=== PATIENT | female | born 1970 | race Caucasian/White ===

== ENCOUNTER 2016-09-30 10:20 | Day surgery (SDC) | payer MEDICARE, OTHER ==
[~2016-09-30] VITALS: Ht 172.7 cm; Wt 157.2 kg
[~2016-09-30 10:20] MED LIST: ACTOS30 MG PO; ACTOS45 MG PO; ADVAIR 250/28 DISKU1 IH; AMARYL4 MG PO; AMBIEN 5MG TABLE5 MG PO; AMBIEN CR12.5 MG PO; AMBIEN CR6.25 MG PO; AMBIEN12.5 MG PO; AMBIEN5 MG PO; AMITRIPTYLINE25 MG PO; ANTI HISTAMINE; ANTIVERT 25MG25 MG PO; ATARAX 25MG25 MG/TAB PO; ATIVAN 0.50.5 MG/TAB PO; ATIVAN PO; AZITHROMYCIN250 MG PO; CARISOPRODOL350 MG PO; CATAPRES 0.1MG0.1 MG PO; CATAPRES0.2 MG PO; CETIRIZINE; CIPRO 500MG TA500 MG PO; COENZYME Q-10100 M1 PO; COLACE 100100 MG/CAP PO; COLCHICINE0.6 MG PO; CORTISPORIN EAR10 M1 OT; CULTURELLE10 Billion PO; CYMBALTA 60MG60 MG PO; DARVOCET N; DIAZEPAM PO; DIFLUCAN200 MG PO; DILAUDID 2MG TAB2 MG PO; DILAUDID4 MG PO; DOXYCYCLINE 10100 MG PO; DOXYCYCLINE 50M50 MG PO; ELMIRON100 MG PO; ERYTHROMYCIN5 MG/G2 OP; FENOFIBRIC ACID PO; FLAX SEED OIL1000 MG PO; FLONASE NASAL S16 GM NS; GABAPENTIN600 MG PO; HUMALOG100 U/ML SC; HUMULIN R 10100 U/ML SQ; HUMULIN R U-500 U/ML SC; HUMULIN R U-500 U/ML SQ; HYDROMORPHONE HC2 MG PO; HYDROXYZINE10 M1 PO; IMITREX100 MG PO; INDERAL 20MG20 MG PO; KLONOPIN 1MG1 MG PO; LAMICTAL CD25 MG PO; LANTUS100 U/ML SC; LEVOTHYROXIN0.075 MG PO; LEVOXYL0.075 MG PO; LIPITOR20 MG PO; LITHIUM 30300 MG/CAP PO; LORATADINE10 MG PO; LYRICA 75MG CAP75 MG PO; LYRICA150 MG PO; MECLIZINE25 MG PO; MEPRON SUSPENSION PO; MUCINEX1200 MG PO; NEPHRO-VITE1 TA1 PO; NORTRIPTYLINE75 MG PO; OMEPRAZOLE40 MG PO; PHENERGAN 25 TA25 MG PO; PRELIEF333 M1 PO; PRIL40; PRIL40 PO; PRILOSEC PO; PYRIDIUM200 M1 PO; REGLAN 10MG10 MG/TAB PO; RELPAX40 MG PO; REQUIP 1MG T1 MG/TAB PO; REQUIP1 MG PO; RESTASIS0.05% OP; RESTORIL PO; SAVELLA100 MG PO; SAVELLA50 MG PO; SEROQUEL200 MG PO; SINGULAIR 110 MG/TAB PO; SLOW-MAG 106 MG1 ECT PO; SOMA350 MG PO; SUDAFED30 MG PO; TEMAZEPAM15 MG PO; TRILIPIX 135MG PO; VICTOZA SQ; VITAMIN D31 LIQ PO; VITAMIN D31 MILLION PO; XYAL5 MG PO; ZANTAC 150150 MG PO; ZANTAC 150MG T150 MG PO; ZITHROMAX 250M250 MG PO; ZOFRAN 4MG T4 MG/TAB PO; ZOFRAN ODT4 MG PO; ZOFRAN4 M1 PO; ZYRTEC 10MG10 MG PO; ZYRTEC5 MG PO; [UNRECOGNIZED DRUG - MIXTURE] TP; [UNRECOGNIZED DRUG - OTHER] PO; [UNRECOGNIZED DRUG - OTHER] TP; victoza IJ
[2016-09-30 11:37] VITALS: BP 181/103; PULSE 88; TEMP 98.2
[2016-09-30] MEDS ORDERED: AMBIEN 10MG10 MG PO (11:55)
[2016-09-30] MEDS ORDERED: PHENERGAN 25 TA25 MG PO (12:10)
[2016-09-30] MEDS ORDERED: PYRIDIUM200 M1 PO (12:10)
[2016-09-30] MEDS ORDERED: DIFLUCAN200 MG PO (12:26)
[2016-09-30 12:30] VITALS: BP 155/95; PULSE 81; TEMP 98.5
[2016-09-30 12:45] VITALS: BP 156/90; PULSE 82
[2016-09-30 13:00] VITALS: BP 157/76; PULSE 79
[2016-09-30 13:15] VITALS: BP 152/85; PULSE 80
== END 2016-09-30 13:30 | disposition home or self-care (01) ==
LOC: SDCO 10:20
DX: D12.3 Benign neoplasm of transverse colon (principal); K63.5 Polyp of colon; K62.1 Rectal polyp; E07.9 Disorder of thyroid, unspecified; K21.9 Gastro-esophageal reflux disease without esophagitis; F41.9 Anxiety disorder, unspecified; F32.9 Major depressive disorder, single episode, unspecified; E11.43 Type 2 diabetes mellitus with diabetic autonomic (poly)neuropathy; K31.84 Gastroparesis; Z86.010 Personal history of colon polyps; Z79.4 Long term (current) use of insulin; Z79.899 Other long term (current) drug therapy
CPT/HCPCS: J1815; J2250; J2704; J7030

== ENCOUNTER 2016-10-05 12:52 | Observation (INO) | payer MEDICARE, OTHER ==
[~2016-10-05] VITALS: Ht 172.7 cm; Wt 157.0 kg
[2016-10-05] VITALS (443 sets, daily range): BP systolic 147–154; BP diastolic 81–97; PULSE 77–95; TEMP 97–98.2; O2SAT 93–98
[~2016-10-05 12:52] MED LIST changes: +AMBIEN 10MG10 MG PO
[2016-10-05 13:44] LABS: BASO # 0.1 (0.0-0.2); BASO % 0.9 % (0.0-2.0); EOS # 0.3 (0.0-0.7); EOS % 3.3 % (0-4.0); GRAN % 62.6 % (42.2-75.2); HEMATOCRIT 43.1 % (37.0-47.0); HEMOGLOBIN 14.1 g/dl (12.5-16.0); LYMPH # 2.4 (1.2-3.4); LYMPH % 25.4 % (20.0-51.0); MEAN CELL VOLUME 83 fl (80.0-100.0); MEAN CORPUSCULAR HEMOGLOBIN 27 pg (27.0-31.0); MEAN CORPUSCULAR HGB CONC 33 g/dl (33.0-37.0); MEAN PLATELET VOLUME 11.5 fl (7.4-10.4); MONO # 0.7 (0.1-0.6); MONO % 7.1 % (1.7-9.3); PLATELET COUNT 304 K/mm3 (130-400); RED BLOOD COUNT 5.17 M/mm3 (4.10-5.30); REDCELL DISTRIBUTION WIDTH-CV 13.7 % (11.5-14.5); WHITE BLOOD COUNT 9.5 K/mm3 (4.8-10.8)
[2016-10-05 13:54] LABS: ADJUSTED CALCIUM 9.2 mg/dL (8.4-10.2); ALBUMIN 4.1 gm/dL (3.5-5.0); BILIRUBIN,TOTAL 0.9 mg/dL (0.0-1.0); CALCIUM 9.3 mg/dL (8.4-10.2); CREATININE, serum 0.67 mg/dL (0.52-1.25); TOTAL PROTEIN 7.2 gm/dL (6.4-8.2)
[2016-10-05 14:13] LABS: PH 6 (5-8); SQUAMOUS EPITHELIAL 0-2 /hpf; URINE APPEARANCE Clear; URINE BACTERIA None Seen /hpf; URINE BILIRUBIN Negative (NEGATIVE); URINE BLOOD Negative (NEGATIVE); URINE COLOR Yellow; URINE GLUCOSE 3+ (NEGATIVE); URINE KETONE Negative (NEGATIVE); URINE UROBILINOGEN Negative (NEGATIVE)
[2016-10-06] VITALS (452 sets, daily range): BP systolic 132–169; BP diastolic 69–85; PULSE 72–91; TEMP 98–98.5; O2SAT 93–98
[2016-10-06 06:34] LABS: CALCIUM 8.7 mg/dL (8.4-10.2); CREATININE, serum 0.54 mg/dL (0.52-1.25); MAGNESIUM 1.4 mg/dL (1.6-2.3); POTASSIUM 3.7 mmol/L (3.4-5.0)
[2016-10-06] MEDS ORDERED: AMBIEN 10MG10 MG PO (17:04)
[2016-10-06] MEDS ORDERED: CIPRO 500MG TA500 MG PO (17:05)
== END 2016-10-06 18:30 | disposition home health service (06) ==
LOC: COL.ER 12:52 → ICU 15:03
PROVIDERS: Emergency Medicine; Internal Medicine
DX: E11.65 Type 2 diabetes mellitus with hyperglycemia (principal); E08.65 Diabetes mellitus due to underlying condition with hyperglycemia; Z91.14 Patient's other noncompliance with medication regimen; N39.0 Urinary tract infection, site not specified; M79.7 Fibromyalgia; G89.29 Other chronic pain; I10 Essential (primary) hypertension; F41.9 Anxiety disorder, unspecified; E66.01 Morbid (severe) obesity due to excess calories; G47.00 Insomnia, unspecified
CPT/HCPCS: G0378; J0696; J1650; J1815; J3475; J7030

== ENCOUNTER 2017-07-27 13:00 | Outpatient (RCR) | payer MEDICARE ==
[2017-07-21 15:15] VITALS: BP 136/102; PULSE 96; TEMP 98.1
[2017-07-25 15:59] VITALS: BP 147/85; PULSE 87; TEMP 98.1
[2017-07-26 14:57] VITALS: BP 146/91; PULSE 85; TEMP 98
[~2017-07-27] VITALS: Ht 172.7 cm; Wt 165.4 kg
[2017-07-27 13:21] VITALS: BP 137/63; PULSE 87; TEMP 97.3
== END 2017-07-27 14:15 | disposition home or self-care (01) ==
LOC: EUO 13:00
DX: E61.1 Iron deficiency (principal); K90.9 Intestinal malabsorption, unspecified; Z88.5 Allergy status to narcotic agent
CPT/HCPCS: J2916

== ENCOUNTER → 2021-11-05 | Outpatient (CLI) | payer MEDICARE | LOC: COL.RAD 13:45 | DX: M17.11 Unilateral primary osteoarthritis, right knee (principal) ==

== ENCOUNTER → 2022-06-09 | Outpatient (CLI) | payer MEDICARE | LOC: COL.RAD 12:07 | DX: M16.0 Bilateral primary osteoarthritis of hip (principal); M25.561 Pain in right knee; M25.562 Pain in left knee ==

== ENCOUNTER 2023-09-19 16:17 | Emergency (ER) | payer MEDICARE ==
[~2023-09-19] VITALS: Ht 175.3 cm; Wt 194.5 kg
[~2023-09-19 16:17] MED LIST changes: +COREG 6.256.25 MG/TA PO; +D3-5050000 IU PO; +ESTRACE2 MG PO; -HUMULIN R U-500 U/ML SQ; +HUMULIN R500 UNIT/1 SQ; +JARDIANCE25; +MAGNESIUM500 MG PO; +OZEMPIC1 MG/0.71 SQ; +REQUIP0.25 MG PO; +TRADJENTA5 MG PO; -VITAMIN D31 LIQ PO
[2023-09-19 17:18] LABS: BASO # 0.1 K/mm3 (0.0-0.2); BASO % 0.8 % (0.0-2.0); EOS # 0.3 K/mm3 (0.0-0.7); EOS % 2.9 % (0.0-4.0); GRAN # 5.7 K/mm3 (1.4-6.5); GRAN % 66.7 % (42.2-75.2); HEMATOCRIT 38.5 % (37.0-47.0); HEMOGLOBIN 12.2 g/dl (12.5-16.0); LYMPH # 1.9 K/mm3 (1.2-3.4); LYMPH % 21.6 % (20.0-51.0); MEAN CELL VOLUME 85 fl (80.0-100.0); MEAN CORPUSCULAR HEMOGLOBIN 27 pg (27-31); MEAN CORPUSCULAR HGB CONC 32 g/dl (33.0-37.0); MEAN PLATELET VOLUME 10.5 fl (7.4-10.4); MONO # 0.6 K/mm3 (0.1-0.6); MONO % 7.2 % (1.7-9.3); PLATELET COUNT 187 K/mm3 (130-400); RED BLOOD COUNT 4.53 M/mm3 (4.10-5.30); REDCELL DISTRIBUTION WIDTH-CV 17.1 % (11.5-14.5)
[2023-09-19 17:35] LABS: ALANINE AMINOTRANSFERASE 21 U/L (0-55); ALKALINE PHOSPHATASE 171 U/L (40-150); ANION GAP 9 mmol/L (7-16); AST,SGOT 18 U/L (5-34); BILIRUBIN,TOTAL 0.6 mg/dL (0.2-1.2); BLOOD UREA NITROGEN 15 mg/dL (10-20); CALCIUM 9.2 mg/dL (8.4-10.2); CHLORIDE 101 mEq/L (98-107); CREATININE, serum 0.83 mg/dL (0.57-1.11); GLUCOSE 339 mg/dL (70-99); POTASSIUM 4.6 mEq/L (3.5-4.5); SODIUM 138 mEq/L (136-145); TOTAL PROTEIN 6.8 g/dl (6.2-8.1)
[2023-09-19 17:42] LABS: TROPONIN-I < 0.010 ng/mL (0.00-0.033)
[2023-09-19] MEDS ORDERED: Iohexol 350 - 100 ML VIAL IV ONE (18:54)
[2023-09-19] MEDS ORDERED: NS 70 ML IV ONE (18:55)
[2023-09-19] MEDS ORDERED: Albuterol/Ipratropium 3 MG-0.5 MG/3 ML Neb Soln IH ONE (20:00)
[2023-09-19] MEDS ORDERED: PROAIR HFA0.09 MG/AC IH (20:36)
[2023-09-19 21:30] VITALS: BP 186/92; PULSE 74; TEMP 98
== END 2023-09-19 21:30 | disposition home or self-care (01) ==
LOC: COL.ER 16:17
PROVIDERS: Nurse Practitioner Primary Care
DX: R06.02 Shortness of breath (principal); R60.1 Generalized edema; E66.01 Morbid (severe) obesity due to excess calories; Z91.040 Latex allergy status
CPT/HCPCS: Q9967

== ENCOUNTER 2024-01-03 09:52 | Inpatient (IN) | payer MEDICARE ==
[~2024-01-03] VITALS: Ht 175.3 cm; Wt 202.4 kg
[2024-01-03] VITALS (12 sets, daily range): BP systolic 118–188; BP diastolic 61–93; PULSE 68–91; TEMP 97.4–98.1
[~2024-01-03 09:52] MED LIST changes: +ESTRACE 1MG1 MG/TAB PO; -ESTRACE2 MG PO; +PROAIR HFA0.09 MG/AC IH; +ZYVOX 600MG600 MG PO
[2024-01-03] MEDS ORDERED: Morphine 4 MG/ML VIAL IV ONE (10:45)
[2024-01-03] MEDS ORDERED: LR 1,000 ML IV ONE (11:15)
[2024-01-03] MEDS ORDERED: Midazolam 2 MG/2 ML VIAL IV ONE (11:30)
[2024-01-03] MEDS ORDERED: HYDROmorphone 0.5 MG/0.5 ML SYRINGE IV ONE (11:30)
[2024-01-03] MEDS ORDERED: HYDROmorphone 0.5 MG/0.5 ML SYRINGE IV PRN (12:00)
[2024-01-03] MEDS ORDERED: Acetaminophen 325 MG TAB PO PRN (12:45)
[2024-01-03] MEDS ORDERED: Ondansetron 4 MG/2 ML VIAL IV PRN ×2 (12:45→17:15)
[2024-01-03] MEDS ORDERED: NS 1,000 ML IV SCH (12:45)
[2024-01-03] MEDS ORDERED: Polyethylene Glycol 3350 17 GM PDS PO PRN (12:45)
[2024-01-03] MEDS ORDERED: Docusate Sodium 100 MG CAP PO PRN (12:45)
[2024-01-03 13:00] LABS: BASO # 0.1 K/mm3 (0.0-0.2); BASO % 0.7 % (0.0-2.0); EOS # 0.4 K/mm3 (0.0-0.7); EOS % 3.4 % (0.0-4.0); GRAN # 7.2 K/mm3 (1.4-6.5); GRAN % 65.3 % (42.2-75.2); HEMATOCRIT 43.1 % (37.0-47.0); HEMOGLOBIN 13.9 g/dl (12.5-16.0); LYMPH # 2.5 K/mm3 (1.2-3.4); LYMPH % 22.7 % (20.0-51.0); MEAN CELL VOLUME 86 fl (80.0-100.0); MEAN CORPUSCULAR HEMOGLOBIN 28 pg (27-31); MEAN CORPUSCULAR HGB CONC 32 g/dl (33.0-37.0); MEAN PLATELET VOLUME 11.5 fl (7.4-10.4); MONO # 0.8 K/mm3 (0.1-0.6); MONO % 7.5 % (1.7-9.3); PLATELET COUNT 186 K/mm3 (130-400); RED BLOOD COUNT 5.01 M/mm3 (4.10-5.30); REDCELL DISTRIBUTION WIDTH-CV 16.1 % (11.5-14.5)
[2024-01-03 13:09] LABS: BILIRUBIN,TOTAL 0.6 mg/dL (0.2-1.2); CREATININE, serum 0.88 mg/dL (0.57-1.11); POTASSIUM 3.9 mEq/L (3.5-4.5); TOTAL PROTEIN 6.2 g/dl (6.2-8.1)
[2024-01-03] MEDS ORDERED: Miconazole 2% Topical Powder BOTTLE TP SCH (14:00)
[2024-01-03] MEDS ORDERED: BELSOMRA10 MG PO (14:36)
[2024-01-03] MEDS ORDERED: CELEBREX 200MG200 MG PO (14:36)
[2024-01-03] MEDS ORDERED: Lidocaine PF 2% (20 MG/ML) 5 ML VIAL ONE (15:10)
[2024-01-03] MEDS ORDERED: dexAMETHasone 10 MG/ML VIAL ONE (15:10)
[2024-01-03] MEDS ORDERED: Ondansetron 4 MG/2 ML VIAL ONE (15:10)
[2024-01-03] MEDS ORDERED: Succinylcholine PF 200 MG/10 ML SYRINGE IV ONE (15:10)
[2024-01-03] MEDS ORDERED: NS 20 ML IV ONE (15:10)
[2024-01-03] MEDS ORDERED: clonazePAM 1 MG TAB PO PRN (15:15)
[2024-01-03] MEDS ORDERED: hydrOXYzine HCl 25 MG TAB PO PRN (15:15)
--- NOTE | 2024-01-03 15:32 | NUR ---
Pt. arrived to the floor and transfered to the bed. Pt. is A&OX3, assessment complete. IV to lt ac patent, IV fluids infusing per orders. Pt. reported paiin at a 8 on pain scale at arrival, Gave pain meds per orders. Pt. denies further needs, call light within reach.
[2024-01-03] MEDS ORDERED: LR 1,000 ML IV SCH (15:45)
[2024-01-03] MEDS ORDERED: fentaNYL 50 MCG/ML 5 ML VIAL ONE (15:46)
--- NOTE | 2024-01-03 16:10 | NUR ---
Pt. to the OR at this time.
[2024-01-03] MEDS ORDERED: Metoclopramide 10 MG TAB PO SCH (16:30)
[2024-01-03] MEDS ORDERED: hydrALAZINE 20 MG/ML 1 ML VIAL IV PRN (16:45)
[2024-01-03] MEDS ORDERED: Insulin Lispro (HumaLOG) SQ SCH (17:00)
[2024-01-03] MEDS ORDERED: Carvedilol 6.25 MG TAB PO SCH (17:00)
[2024-01-03] MEDS ORDERED: fentaNYL 50 MCG/ML 1 ML SYRINGE/VIAL [PACU/SDC ONLY] IV PRN (17:15)
[2024-01-03] MEDS ORDERED: droPERidol 2.5 MG/ML 2 ML VIAL IV PRN (17:15)
[2024-01-03] MEDS ORDERED: HYDROmorphone 1 MG/1 ML SYRINGE [PACU/SDC ONLY] IV PRN (17:15)
[2024-01-03] MEDS ORDERED: Morphine 2 MG/1 ML VIAL [PACU/SDC ONLY] IV PRN (17:15)
[2024-01-03] MEDS ORDERED: fentaNYL 50 MCG/ML 2 ML VIAL ONE (17:18)
--- NOTE | 2024-01-03 19:50 | NUR ---
PT BACK TO ROOM 328 FROM PACU. A&O X4 & DROWSY. ON POST OP VITALS, WNL. ON 3L/NC. ADMISSION ASSESSMENT COMPLETE AT THIS TIME. DRESSING & ACEWRAP TO RLE IS CDI & ICEPACKS IN PLACE. PT REPORTING PAIN 7-8/10, TOO EARLY FOR PAIN MEDS & PT RECEIEVED MAX DOSES DOWN IN PACU. DENYING N/V AT THIS TIME. IVF VIA GRAVITY TO LEFT AC. PT HAS REPORTED WOUND TO PANUS, FOAM AQUACELL DRSG APPLIED. PT DENYING FURTHER NEEDS. CALL LIGHT IN REACH
[2024-01-03] MEDS ORDERED: rOPINIRole 0.5 MG TAB PO SCH (21:00)
[2024-01-03] MEDS ORDERED: Pregabalin 75 MG CAP PO SCH (21:00)
[2024-01-03] MEDS ORDERED: cloNIDine 0.1 MG TAB PO SCH (21:00)
--- NOTE | 2024-01-03 23:00 | NUR ---
PT HAD X1 EPISODE OF EMESIS EARLIER, GAVE PRN ZOFRAN AROUND 2014. PT ALSO STATED SHE HAS HAD TO VOID SINCE BEFORE GOING DOWN TO THE OR. PT REFUSED GETTING UP TO BSC SO PT WAS PLACED ON THE BEDPAN. PT WAS UNABLE TO VOID. BLADDER SCAN SHOWED 1300MLS AROUND 2200. CHARGE NURSE CALLED HOSPITALIST BREE & GOT AN ORDER FOR A SOTO TO BE PLACED. FIRST ATTEMPT WITH THIS NURSE & CHARGE NURSE UNSUCCESSFUL. CEMENT LOADER ALSO IN PT ROOM TO ASSIST WITH SECOND ATTEMPT AND 16FR SOTO WAS SUCCESSFULLY PLACED WITH YELLOW OUTPUT. UA SENT TO LAB AT THIS TIME
[2024-01-03 23:13] LABS: COLLECTION METHOD CLEAN CATCH
[2024-01-03 23:24] LABS: PH 7.5 (5.0-8.5); URINE APPEARANCE CLEAR (CLEAR/HAZY); URINE BLOOD NEGATIVE (NEGATIVE); URINE COLOR YELLOW (YELLOW); URINE GLUCOSE 2+ (NEGATIVE); URINE KETONE 1+ (NEGATIVE); URINE NITRATE NEGATIVE (NEGATIVE); URINE PROTEIN(semi-quant) TRACE (NEGATIVE)
--- NOTE | 2024-01-03 23:30 | NUR ---
PT STATING PAIN TO HER RLE IS 01/22, GAVE PRN DILAUDID PER JUL. RLE ELEVATED ON PILLOW & ICEPACKS IN PLACE
[2024-01-04] VITALS (11 sets, daily range): BP systolic 108–151; BP diastolic 59–78; PULSE 83–98; TEMP 97.8–98.8
[2024-01-04] MEDS ORDERED: oxyCODONE 5 MG TAB PO PRN ×2 (05:45→08:00)
--- NOTE | 2024-01-04 06:15 | NUR ---
PT REPORTING PAIN 10/22 TO RLE. HOSPITALIST BREE NOTIFED & NEW ORDER FOR PRN OXYCODONE, GAVE PER JUL. PTS O2 ALSO DOWN TO 1.5L/NC NOW. PT DENYING FURTHER NEEDS. CALL LIGHT IN REACH
[2024-01-04 06:21] LABS: BASO % 0.3 % (0.0-2.0); GRAN # 9.8 K/mm3 (1.4-6.5); GRAN % 84.1 % (42.2-75.2); HEMATOCRIT 38.5 % (37.0-47.0); HEMOGLOBIN 12.8 g/dl (12.5-16.0); LYMPH # 1.3 K/mm3 (1.2-3.4); LYMPH % 10.8 % (20.0-51.0); MEAN CELL VOLUME 85 fl (80.0-100.0); MEAN CORPUSCULAR HEMOGLOBIN 28 pg (27-31); MEAN CORPUSCULAR HGB CONC 33 g/dl (33.0-37.0); MEAN PLATELET VOLUME 11.2 fl (7.4-10.4); MONO # 0.5 K/mm3 (0.1-0.6); MONO % 4.4 % (1.7-9.3); PLATELET COUNT 174 K/mm3 (130-400); RED BLOOD COUNT 4.55 M/mm3 (4.10-5.30)
[2024-01-04 06:31] LABS: ALBUMIN 2.7 g/dL (3.5-5.0); BILIRUBIN,TOTAL 0.7 mg/dL (0.2-1.2); CALCIUM 9.2 mg/dL (8.4-10.2); CREATININE, serum 0.87 mg/dL (0.57-1.11); POTASSIUM 4.9 mEq/L (3.5-4.5); TOTAL PROTEIN 5.7 g/dl (6.2-8.1)
[2024-01-04] MEDS ORDERED: Omeprazole 40 MG **** subs to Pantoprazole 40 MG PO SCH (07:00)
[2024-01-04] MEDS ORDERED: Dextrose 50% Water 25 GM/50 ML SYRINGE IV PRN (07:30)
[2024-01-04] MEDS ORDERED: Dextrose (Glucose) 15 GM (4 x 3.75 GM) Chewable TABLET PACK PO PRN (07:30)
[2024-01-04] MEDS ORDERED: Glucagon 1 MG VIAL IM PRN (07:30)
[2024-01-04] MEDS ORDERED: HYDROmorphone 0.5 MG/0.5 ML SYRINGE IV PRN (08:00)
[2024-01-04] MEDS ORDERED: Ondansetron 4 MG/2 ML VIAL IV PRN (08:00)
[2024-01-04] MEDS ORDERED: Docusate Sodium 100 MG CAP PO PRN (08:00)
[2024-01-04] MEDS ORDERED: Naloxone 0.4 MG/ML VIAL IV PRN (08:00)
[2024-01-04] MEDS ORDERED: Ketorolac 15 MG/ML VIAL IV SCH (08:00)
--- NOTE | 2024-01-04 08:30 | NUR ---
SHIFT ASSESSMENT COMPLETE. VSS. PATIENT RESTING IN BED, PATIENT EMTOTIONAL THIS AM WITH OVERALL SITUATION. ALL MORNING MEDS GIVEN PER ORDERS. PATIENT STATES PAIN 8/10 PAIN MEDS GIVEN PER ORDERS. PATIENT HAS NO OTHER NEEDS AT THIS TIME. CALL LIGHT IN REACH
[2024-01-04] MEDS ORDERED: Insulin Regular Human (NovoLIN R/HumuLIN R) SQ SCH (08:52)
[2024-01-04] MEDS ORDERED: HYDROmorphone 2 MG TAB PO PRN (09:00)
[2024-01-04] MEDS ORDERED: Azithromycin 250 MG TAB PO SCH (09:00)
[2024-01-04] MEDS ORDERED: Aspirin 325 MG TAB PO SCH (09:00)
--- NOTE | 2024-01-04 09:21 | NUR ---
survey workers supervisor attended clinical rounding with Dr. Linton and was informed pt will likely need placement, has complex mental health concerns with ideation, and does not want a correction. reports pt states her father at [facility] and does not want this facility. She states to she will end her life if she had to go to a correction, and does have a plan. Dr. Linton consulted tele-psych. informed CAROLYN that pt has not had many outpatient follow-ups due to financial stress and her and her daughter living off her limited income and disability. CAROLYN informed they will have financial counselor discuss Medicaid and SW will discuss Swing Bed and IPR options. CAROLYN informed financial counselor, Jarrett to meet with pt and discuss Medicaid due to financal constraints and inform SW. CAROLYN met with pt to discuss discharge planning. She confirmed to live with her daughter, Kisha [phone] in [place]. She reports to see Dr. Altamirano for PCP needs and obtains medications from [employer] with difficulties. She reports that she uses the assistance program Medicare offers and cannot also use [facility] with this. CAROLYN advised she discuss with her PCP coupons, samples, and the $4 medication list, if she qualifies to assist her further. She verbalized understanding. She reports that she is NOT independent with ADLS and cannot shower, her daughter helps her sponge bath and "is not happy about it." She states using the restroom is difficult due to her knees. She states her daughter helps her and is not very agreeable to do so. She states to have a FWW and cane for DME. She states she is unable to use DME in her home and has been more weak for it to support her also. She tells SW that she furniture surfs, but this is difficult due to her and her daughter's, "shopping." She discloses hoarding behaviors to SW such as, various books and packages in the home and stacked up with all book shelves full. She reports the items are all loose around the home and are not stable enough to bear weight on. She states she cannot move around and there are only "goat trails." Pt states she does not cook and her daughter does, but when she has a "break down" or cluster headaches that she refuses to do so. She states that she will just wait for food until her daughter "comes to her senses" or will try to drive somewhere to get food, but this causes more stress financially. CAROLYN discussed mental health concerns and need for a therapist or OP follow-up. CAROLYN provided [facility] mental health lists and suggested she follow-up with someone to get seen. SW also discussed rehab options and how she was informed she would not want a correction. Pt confirmed this. CAROLYN discussed IPR vs Swing Bed options in the surrounding areas and all details. CAROLYN provided Medicare.gov list for IPR facilities and their locations. She prefers to stay in [place] and is agreed to CAROLYN giving this [facility] a referral. CAROLYN states the Director will review her information and discuss details with her. She verbalized understanding and tele-psych had arrived for their consult. CAROLYN informed ELLIOTT Barros of the above information. CAROLYN informed IPR LiasonIndy of the referral. PT/OT Pending Discharge Plan: IPR vs Swing Bed, PT/OT pending
[2024-01-04] MEDS ORDERED: ceFAZolin 2 G in Water For Injection,Sterile 20 ML IV SCH (12:00)
[2024-01-04] MEDS ORDERED: Insulin Lispro (HumaLOG) SQ SCH (12:00)
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
--- NOTE | 2024-01-04 16:08 | NUR ---
CAROLYN spoke with Yoan with [facility] who reports they do not believe a discharge home will be safe for pt. CAROLYN received a call from [facility] reporting they decline pt due to not being from their area nor having a PCP there. CAROLYN received a call from [facility] reporting they would continue to review, but state pt will likely be there only 1-2 weeks then need to go to a SNF due to her weight bearing status. They are checking to see if they can also accomodate a bariatric pt. Discharge Plan: Swing Bed vs IPR
[2024-01-04] MEDS ORDERED: Insulin Regular Human (NovoLIN R/HumuLIN R) SQ ONE (18:15)
[2024-01-05] VITALS (14 sets, daily range): BP systolic 126–186; BP diastolic 51–84; PULSE 69–93; TEMP 97.7–98.3
[2024-01-05 06:35] LABS: BASO # 0.1 K/mm3 (0.0-0.2); BASO % 0.6 % (0.0-2.0); EOS # 0.2 K/mm3 (0.0-0.7); EOS % 1.9 % (0.0-4.0); GRAN # 5.3 K/mm3 (1.4-6.5); GRAN % 54.1 % (42.2-75.2); HEMATOCRIT 37.4 % (37.0-47.0); HEMOGLOBIN 12.6 g/dl (12.5-16.0); LYMPH # 3.4 K/mm3 (1.2-3.4); LYMPH % 33.9 % (20.0-51.0); MEAN CELL VOLUME 84 fl (80.0-100.0); MEAN CORPUSCULAR HEMOGLOBIN 28 pg (27-31); MEAN CORPUSCULAR HGB CONC 34 g/dl (33.0-37.0); MEAN PLATELET VOLUME 11.5 fl (7.4-10.4); MONO # 0.9 K/mm3 (0.1-0.6); MONO % 9.3 % (1.7-9.3); PLATELET COUNT 167 K/mm3 (130-400); RED BLOOD COUNT 4.44 M/mm3 (4.10-5.30); REDCELL DISTRIBUTION WIDTH-CV 16.6 % (11.5-14.5)
--- NOTE | 2024-01-05 06:41 | NUR ---
THE PATIENT RESTED WILL ALL NIGHT. SCHEDULED AND PRN PAIN MEDICATIONS PROVIDED. THE PATIENT RATED HER PAIN 8/10 BUT AFTER INTERVENTIONS 5/10. THE PATIENT DOES WELL WITH REPOSITIONING AND MOVING THE AFFECTED RLE. THE PATIENTS DRESSING IS C/D/I. NO NEEDS AT THIS TIME. THE CALL LIGHT AND PERSONAL BELONGINGS ARE WITHIN REACH.
[2024-01-05 06:59] LABS: ALBUMIN 2.6 g/dL (3.5-5.0); BILIRUBIN,TOTAL 0.7 mg/dL (0.2-1.2); CALCIUM 9.5 mg/dL (8.4-10.2); CREATININE, serum 0.77 mg/dL (0.57-1.11); POTASSIUM 3.6 mEq/L (3.5-4.5); TOTAL PROTEIN 5.4 g/dl (6.2-8.1)
--- NOTE | 2024-01-05 07:30 | NUR ---
SHIFT ASSESSMENT COMPLETE. VSS. PATIENT RESTING IN BED FINISHING UP BREAKFAST. ALL MORNING MEDS GIVEN ORDERED. PATIENT REPORTS PAIN 5/10 PAIN MEDS GIVEN ORDERED AND FEELING CONSTIPATED MEDS GIVEN ORDERED TO HELP PATIENT HAVE A BM. PATIENT HAS NO OTHER REQUEST AT THIS TIME. CALL LIGHT IN REACH.
[2024-01-05] MEDS ORDERED: Insulin Regular Human (NovoLIN R/HumuLIN R) SQ SCH (08:00)
[2024-01-05] MEDS ORDERED: ceFAZolin 2 G in Water For Injection,Sterile 20 ML IV SCH (08:15)
--- NOTE | 2024-01-05 09:56 | NUR ---
ship worker contacted [facility], they are unable to accept patient, due to medical equipment weight limit.
[2024-01-05] MEDS ORDERED: Docusate Sodium 100 MG CAP PO SCH (10:00)
--- NOTE | 2024-01-05 10:16 | NUR ---
PATIENT UP TO CAMMODE WITH PT TODAY, PATIENT TOLERATED WELL.
--- NOTE | 2024-01-05 12:50 | NUR ---
needleworker met with IPR whom is unable to accept patient. CAROLYN spoke with [place] [facility] whom expressed concern about the discharge plan after IPR but would like to see updates for PT and OT today. Blake Jo# [phone] will be the contact from [place] [facility] to follow up with. CAROLYN was notified [place] [facility] is unable to accept. CAROLYN contacted [place] [facility] whom expressed they did not receive the referral. CAROLYN faxed the full referral to them. CAROLYN contacted [facility], they are unable to accept. SW contacted [facility], they are unable to accept. SW left a voicemail for [facility]. CAROLYN contacted [facility] and they expressed they only received a few pages of the referral. CAROLYN faxed the full referral to them. CAROLYN faxed clinical updates to [place] [facility]. CAROLYN faxed referral to [facility]. CAROLYN left a voicemail for [facility]. CAROLYN was notified [facility] is unable to accept as they worry about patient being 6 weeks of "toe touch" weightbearing so patient would be unable to return home. Discharge plan: IPR or Swing Bed
--- NOTE | 2024-01-05 16:30 | NUR ---
PATIENT BP ELEVATED 174 SYSTOLIC, BP PRN MED GIVEN ORDERED. WILL RECHECK BP IN 1 HOUR.
--- NOTE | 2024-01-05 16:48 | NUR ---
[facility] is unable to accept patient due to being unable to meet her needs.
--- NOTE | 2024-01-05 18:50 | NUR ---
PATIENT FEELING ANXIOUS THIS NURSE GAVE PRN ANXITY MED ORDERED.
[2024-01-06] VITALS (12 sets, daily range): BP systolic 132–186; BP diastolic 65–82; PULSE 73–80; TEMP 97.7–98.6
[2024-01-06 06:08] LABS: BASO % 0.4 % (0.0-2.0); EOS # 0.4 K/mm3 (0.0-0.7); EOS % 5.5 % (0.0-4.0); GRAN # 3.9 K/mm3 (1.4-6.5); GRAN % 49.2 % (42.2-75.2); HEMOGLOBIN 11.9 g/dl (12.5-16.0); LYMPH # 2.7 K/mm3 (1.2-3.4); LYMPH % 34.8 % (20.0-51.0); MEAN CELL VOLUME 86 fl (80.0-100.0); MEAN CORPUSCULAR HEMOGLOBIN 28 pg (27-31); MEAN CORPUSCULAR HGB CONC 33 g/dl (33.0-37.0); MEAN PLATELET VOLUME 11.1 fl (7.4-10.4); MONO # 0.8 K/mm3 (0.1-0.6); MONO % 9.8 % (1.7-9.3); PLATELET COUNT 165 K/mm3 (130-400); RED BLOOD COUNT 4.26 M/mm3 (4.10-5.30); REDCELL DISTRIBUTION WIDTH-CV 16.6 % (11.5-14.5)
[2024-01-06 06:19] LABS: HEMATOCRIT 36.5 % (37.0-47.0)
[2024-01-06 06:24] LABS: ALBUMIN 2.5 g/dL (3.5-5.0); BILIRUBIN,TOTAL 0.7 mg/dL (0.2-1.2); CALCIUM 8.5 mg/dL (8.4-10.2); CREATININE, serum 0.78 mg/dL (0.57-1.11); TOTAL PROTEIN 5.2 g/dl (6.2-8.1)
--- NOTE | 2024-01-06 06:37 | NUR ---
THE PATIENT RESTED WELL ALL NIGHT AND WAS ABLE TO DO MOST OF HER OWN REPOSITIONING WITH A SMALL AMOUNT OF STAFF ASSIST. THE PATIENT IS REQUIRING BOTH SCHEDULED AND PRN PAIN MEDICATIONS FOR THE PAIN IN HER RIGHT LOWER EXTREMITY. CALL LIGHT AND PERSONAL BELONGINGS WITHIN REACH. NO NEEDS AT THIS TIME.
--- NOTE | 2024-01-06 06:55 | NUR ---
Pt sleeping in bed. CAll light in reach.
[2024-01-06] MEDS ORDERED: Carvedilol 6.25 MG TAB PO SCH (08:00)
[2024-01-06] MEDS ORDERED: Polyethylene Glycol 3350 17 GM PDS PO SCH (09:00)
--- NOTE | 2024-01-06 09:09 | NUR ---
Pt laying in bed. A&Ox4. VSS. S1S2. Clear lungs on RA. ABD round, soft, non-tender. Palpable pulses in all extremities. RLE has NAIDA dressing in place, CDI. INT in L AC patent, no issues. L 5th toe has ulcer on dorsal side - bandage inplace. Pannus has alexsander-sized ulcer in L groin area. R armpit has previous abscess site with small hole. Pt states pain 7/10 in RLE. Pt states its starting to climb since therapy was working with her. Administered pain meds. Pt stated she was feeling a little nauseated, administered Zofran. No further needs. Call light in reach.
--- NOTE | 2024-01-06 12:50 | NUR ---
TOP LIFTER faxed clinical updates to [place] [facility], [facility], [facility], [facility], and Alex [facility]
[2024-01-06] MEDS ORDERED: [UNRECOGNIZED DRUG - OTHER] PO SCH (21:00)
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
[2024-01-07] VITALS (11 sets, daily range): BP systolic 134–166; BP diastolic 74–85; PULSE 64–82; TEMP 97.9–98.1
[2024-01-07 06:16] LABS: BASO % 0.4 % (0.0-2.0); EOS # 0.5 K/mm3 (0.0-0.7); EOS % 7.3 % (0.0-4.0); GRAN # 3.2 K/mm3 (1.4-6.5); GRAN % 44.4 % (42.2-75.2); HEMATOCRIT 38.5 % (37.0-47.0); HEMOGLOBIN 12.5 g/dl (12.5-16.0); LYMPH # 2.9 K/mm3 (1.2-3.4); MEAN CELL VOLUME 87 fl (80.0-100.0); MEAN CORPUSCULAR HEMOGLOBIN 28 pg (27-31); MEAN CORPUSCULAR HGB CONC 33 g/dl (33.0-37.0); MEAN PLATELET VOLUME 11.1 fl (7.4-10.4); MONO # 0.6 K/mm3 (0.1-0.6); MONO % 8.6 % (1.7-9.3); PLATELET COUNT 188 K/mm3 (130-400); RED BLOOD COUNT 4.41 M/mm3 (4.10-5.30); REDCELL DISTRIBUTION WIDTH-CV 16.1 % (11.5-14.5)
--- NOTE | 2024-01-07 06:30 | NUR ---
Pt sleeping in bed.
[2024-01-07 06:42] LABS: ALBUMIN 2.7 g/dL (3.5-5.0); BILIRUBIN,TOTAL 0.7 mg/dL (0.2-1.2); CALCIUM 8.8 mg/dL (8.4-10.2); CREATININE, serum 0.86 mg/dL (0.57-1.11); MAGNESIUM 1.8 mg/dL (1.6-2.6); POTASSIUM 4.5 mEq/L (3.5-4.5); TOTAL PROTEIN 5.7 g/dl (6.2-8.1)
--- NOTE | 2024-01-07 08:05 | NUR ---
Pt laying in bed. A&Ox4. VSS. S1S2. Clear lungs on RA. ABD round, soft, non-tender with audible bowel sounds. Palpable pulses in all extremities. Pt able ot lift self off bed with trapeeze bar to reposition. Pt turned onto L side with pillow support. Pt states pain in R leg is 7/10. Pt denies n/v, headache, dizziness. Redness under pannus with alexsander sized ulcer in L groin. Mepilex pad in place with Desenex powder. No further needs. Call light in reach.
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
--- NOTE | 2024-01-07 11:24 | NUR ---
WAREHOUSE OPERATIONS ASSOCIATE was contacted my [facility] and pt has been declined due to acuity.
--- NOTE | 2024-01-07 16:00 | NUR ---
Pt ambulated to bathroom with 2 assist. Pt completed hygiene with assistance from PCT. Pt started to have an anxiety attack and pain in R leg. Administered Atarax. Educated Pt on medication and plan for pain follow up. Pt agreeable. Pt ambulated back to bed and mother is at bedside. No further needs at this time. Will continue to monitor.
--- NOTE | 2024-01-07 20:00 | NUR ---
Assessment complete. A&Ox3. Denies nausea/shortness of breath. VS stable. Robles cath with clear yellow urine. INT to left AC flushes without difficulty. C/O pain to right lower ext-8/10-described as constant ache. Oxycodone given per dr order. Noted to have a left pinky toe ulcer. Dressing intact. Left groin ulcer-mepilex CDI. Pannus with excoriation-interdry in place. Right lower ext-tracee/splint-CDI. Plan of care discussed for this shift to include pain control/meds/calling for questions/concerns. Verbalizes understanding. Call light in reach. Will monitor.
[2024-01-08] VITALS (12 sets, daily range): BP systolic 122–172; BP diastolic 69–81; PULSE 71–82; TEMP 97.5–98.5
[2024-01-08 06:39] LABS: BASO % 0.4 % (0.0-2.0); EOS # 0.6 K/mm3 (0.0-0.7); EOS % 7.1 % (0.0-4.0); GRAN # 3.9 K/mm3 (1.4-6.5); GRAN % 47.1 % (42.2-75.2); LYMPH % 35.9 % (20.0-51.0); MEAN CELL VOLUME 86 fl (80.0-100.0); MEAN CORPUSCULAR HEMOGLOBIN 28 pg (27-31); MEAN CORPUSCULAR HGB CONC 33 g/dl (33.0-37.0); MEAN PLATELET VOLUME 10.8 fl (7.4-10.4); MONO # 0.8 K/mm3 (0.1-0.6); MONO % 9.1 % (1.7-9.3); PLATELET COUNT 190 K/mm3 (130-400); RED BLOOD COUNT 4.25 M/mm3 (4.10-5.30)
[2024-01-08 06:52] LABS: HEMATOCRIT 36.5 % (37.0-47.0)
[2024-01-08 07:16] LABS: ALBUMIN 2.5 g/dL (3.5-5.0); BILIRUBIN,TOTAL 0.7 mg/dL (0.2-1.2); CALCIUM 8.6 mg/dL (8.4-10.2); CREATININE, serum 0.75 mg/dL (0.57-1.11); POTASSIUM 4.3 mEq/L (3.5-4.5); TOTAL PROTEIN 5.2 g/dl (6.2-8.1)
--- NOTE | 2024-01-08 08:40 | NUR ---
pt a&ox4 resting in bed. meds given and assessment complete. pt rates pain a 7/10 today, reports had increased activity today. BGL 146 this morning. pt wanting to eat breakfast then instructed her that we will discontinue quesada and change abdominal dressing. INT to left ac patent. splint to RLE is cdi. pt denies needs at this time. call light in reach.
--- NOTE | 2024-01-08 10:18 | NUR ---
quesada discontinued without difficulty. encouraging patient to ambulate with therapy more today. pain medication given. new mepilex applied to abdomen.
[2024-01-08] MEDS ORDERED: Lisinopril 10 MG TAB PO SCH (11:30)
[2024-01-08] MEDS ORDERED: Insulin Regular Human (NovoLIN R/HumuLIN R) SQ SCH (12:00)
--- NOTE | 2024-01-08 13:28 | NUR ---
[facility] and [facility] are unable to accept bariatric patients at this time. SW faxed referral to [facility]ita [facility], [facility], and [facility] for review.
--- NOTE | 2024-01-08 16:27 | NUR ---
dairy feed worker met with patient to discuss rehab options. SW explained the nursing facilities that she allowed a referral to be sent to - [facility] and [facility]- both stated they are unable to accept due to equipment needs. SW explained our IPR in the hospital is unable to accept. SW explained all of the options for Swing Bed and IPR that she has sent to and are currently unable to accept patient. SW explained she understands she does not want to go outside of [place]; however, they would need to start looking at nursing facilities outside of [place] as the ones in [place] cannot accept. SW discussed [place], patient stated no. SW explained she would start with sending referrals around 30 miles from [place] but explained if they are unable to accept she would need to look farther out such as [place] or [place]. Patient became tearful. SW discussed Medicaid and patient stated she does not have it yet but was looking at applying. Patient explained she has dealt with depression for awhile now. SW asked if she would be open to depression medication, patient stated she has tried numerous medications but they do not work for her. SW discussing gene testing where it would tell her what medications would specifically work for her based on genes. Patient stated her previous therapist had mentioned it but she has not tried it yet but is open to it and would discuss with her primary care physician. SW contacted [place], [facility], [facility], [facility], [facility] and [place]. All are unable to accept due to weight restrictions on their equipment or availability of beds. CAROLYN Eugene was able to send a referral to a few agencies, see her note. CAROLYN spoke with Jarrett whom reports patient has a 24k 401k that would need to be spent before she would qualify for Medicaid. CAROLYN will continue to follow up on referrals. Discharge plan: SNF
--- NOTE | 2024-01-08 18:15 | NUR ---
pt unsuccessfully completed voiding trial after quesada discontinued. bladder scan showed 598 cc in bladder. 16F quesada place w clear orange urine output.
--- NOTE | 2024-01-08 19:25 | NUR ---
PATIENT RESTING IN BED WITH TV ON WITH NO FAMILY PRESENT WITH NO ACUTE DISTRESS NOTED. PATIENT ON ROOM AIR. INT TO LEFT AC INTACT WITH NO COMPLICATIONS NOTED. DRESSING TO RIGHT ANKLE CLEAN, DRY, AND INTACT. BEDSIDE SHIFT REPORT COMPLETED WITH ROSALINDA AT THIS TIME. PATIENT DENIES ANY NEEDS. BED IN LOW POSITION WITH WHEELS LOCKED WITH RAILS UP X3 AND CALL LIGHT WITHIN REACH.
--- NOTE | 2024-01-08 22:15 | NUR ---
PATIENT RESTING IN BED WIHT TV ON WITH NO FAMILY PRESENT WITH NO ACUTE DISTRESS NOTED. PATIENT ON ROOM AIR. INT TO LEFT AC INTACT WITH NO COMPLICATIONS NOTED. DRESSING TO RIGHT ANKLE CLEAN, DRY, AND INTACT. DRESSING TO ABDOMEN CLEAN, DRY, AND INTACT. ASSESSMENT AND MEDICATION ADMINISTRATION COMPLETED AT THIS TIME. PATIENT C/O PAIN. PATIENT STATES PAIN LEVEL IS 8 ON SCALE OF 0 TO 10. PATIENT REQUESTED TO USE BATHROOM. PATIENT ASSISTED UP TO BATHROOM WITH WALKER. PATIENT HAD BOWEL MOVEMENT. PATRICIA CARE PROVDIED. PATIENT ASSISTED BACK TO BED AND HELPED TO REPOSITION FOR COMFORT. PILLOW SUPPORT UNDER RIGHT ANKLE. PATIENT DENIES ANY OTHER NEEDS. BED IN LOW POSITION WITH WHEELS LOCKED WITH RAILS UP X3 AND CALL LIGHT WITHIN REACH.
[2024-01-09] VITALS (13 sets, daily range): BP systolic 128–186; BP diastolic 57–88; PULSE 70–88; TEMP 97.3–99
[2024-01-09 07:01] LABS: BASO # 0.1 K/mm3 (0.0-0.2); BASO % 0.7 % (0.0-2.0); EOS # 0.8 K/mm3 (0.0-0.7); EOS % 7.6 % (0.0-4.0); GRAN # 4.9 K/mm3 (1.4-6.5); GRAN % 50.3 % (42.2-75.2); HEMATOCRIT 39.4 % (37.0-47.0); LYMPH # 3.2 K/mm3 (1.2-3.4); LYMPH % 32.3 % (20.0-51.0); MEAN CELL VOLUME 86 fl (80.0-100.0); MEAN CORPUSCULAR HEMOGLOBIN 28 pg (27-31); MEAN CORPUSCULAR HGB CONC 33 g/dl (33.0-37.0); MEAN PLATELET VOLUME 10.8 fl (7.4-10.4); MONO # 0.9 K/mm3 (0.1-0.6); MONO % 8.7 % (1.7-9.3); PLATELET COUNT 233 K/mm3 (130-400); RED BLOOD COUNT 4.59 M/mm3 (4.10-5.30); REDCELL DISTRIBUTION WIDTH-CV 16.1 % (11.5-14.5)
[2024-01-09 07:27] LABS: ALBUMIN 2.7 g/dL (3.5-5.0); BILIRUBIN,TOTAL 0.9 mg/dL (0.2-1.2); CREATININE, serum 0.77 mg/dL (0.57-1.11); POTASSIUM 4.1 mEq/L (3.5-4.5); TOTAL PROTEIN 5.7 g/dl (6.2-8.1)
--- NOTE | 2024-01-09 09:00 | NUR ---
pt a&ox4 resting in bed. vss. pt reports pain a 6/10 in RLE. splint intact, no drainage present. quesada to dd w orange urine output. mepilex to lower abdomen cdi. new interdry placed beneath stomach and powder applied to breast to help with redness. INT to left ac patent. pt denies needs at this time. call light in reach.
[2024-01-09] MEDS ORDERED: clonazePAM 1 MG TAB PO PRN (09:15)
[2024-01-09] MEDS ORDERED: Lisinopril 10 MG TAB PO ONE (09:15)
--- NOTE | 2024-01-09 15:15 | NUR ---
bunk house worker attended interdisciplinary clinical rounding with Dr. Flynn. Patient was tearful and wanted to remain in this area because of her daughter. SW explained there were three facilities that were reviewing and unfortunately [facility] declined. SW explained she would need to send to agencies farther than she currently has if those three decline. Patient was willing for a referral to [facility] if it meant she was able to stay in [place]. SW explained she would send the referral but it does not mean that she would be accepted and she would follow up. SW secure emailed referral to [facility]. SW followed up with [facility], they stated they were unable to accept due to her needs. [facility] stated they were unable accept due to her medication needs. SW contacted [facility] whom stated they could not accept. SW contacted [facility] whom expressed they were unable to accept as they are only a psych facility. SW contacted [facility] [place] whom expressed they are unable to accept due to no bariatric beds. SW contacted [facility] whom expressed they cannot accept due to no bariatric beds/equipment. SW left a voicemail for the [facility]. CAROLYN spoke with [facility]ita [facility] whom expressed they are still reviewing and will follow up with the social work instructor. SW faxed referral to [facility] as they expressed they may be able to look at patient but need to confirm their weight limits on equipment. Discharge plan: Swing Bed vs SNF
--- NOTE | 2024-01-09 16:52 | NUR ---
SW met with patient and provided the Medicare.gov list of SNF. SW marked the ones that were currently reviewing and the ones that have currently declined and explained why they are unable to accept at this time. Patient appreciated this and stated she understands. SW explained she would follow up with her tomorrow during the interdisciplinary clinical rounding. Updates on referrals: Declined: [facility], [facility], [facility], [facility], [place], [place], [facility], [place], [facility], [facility], [place], [facility] [place], [facility], [facility], [facility], [place], [facility], [facility], [place], [employer], [facility], [place] [facility], [facility] at [facility], [facility], [place] [facility], [facility], [facility], [facility], [facility] Reviewing: [facility], [facility] [place], [facility] [place], [facility] [place], [facility] Left voicemail with: [facility], [facility], [facility] and [facility] SW will follow up tomorrow. Discharge plan: Swing bed vs SNF
--- NOTE | 2024-01-09 20:27 | NUR ---
Patient assessed at this time, see shift assessment, reports pain to right leg, PS of 8/10, medicated with oxycodone, dressing to right leg CDI, IV infusing well on left antecubital with no complications, with quesada to dependent drainage, denies further needs, call light and personal items within reach, will continue to monitor.
[2024-01-09] MEDS ORDERED: Pregabalin 50 MG CAP PO SCH (21:00)
[2024-01-10] VITALS (13 sets, daily range): BP systolic 128–163; BP diastolic 47–83; PULSE 70–93; TEMP 98–99.3
--- NOTE | 2024-01-10 05:00 | NUR ---
Catheter care provided at this time, rechecked her blood pressure and it's 140's sbp.
[2024-01-10 06:30] LABS: BASO # 0.1 K/mm3 (0.0-0.2); BASO % 0.6 % (0.0-2.0); EOS # 0.7 K/mm3 (0.0-0.7); EOS % 6.4 % (0.0-4.0); GRAN # 5.2 K/mm3 (1.4-6.5); GRAN % 48.3 % (42.2-75.2); HEMATOCRIT 39.3 % (37.0-47.0); HEMOGLOBIN 12.8 g/dl (12.5-16.0); LYMPH # 3.8 K/mm3 (1.2-3.4); LYMPH % 35.7 % (20.0-51.0); MEAN CELL VOLUME 87 fl (80.0-100.0); MEAN CORPUSCULAR HEMOGLOBIN 28 pg (27-31); MEAN CORPUSCULAR HGB CONC 33 g/dl (33.0-37.0); MONO # 0.9 K/mm3 (0.1-0.6); MONO % 8.6 % (1.7-9.3); PLATELET COUNT 247 K/mm3 (130-400); RED BLOOD COUNT 4.51 M/mm3 (4.10-5.30); REDCELL DISTRIBUTION WIDTH-CV 16.4 % (11.5-14.5)
[2024-01-10 06:46] LABS: CALCIUM 8.9 mg/dL (8.4-10.2); CREATININE, serum 0.8 mg/dL (0.57-1.11); POTASSIUM 4.2 mEq/L (3.5-4.5)
--- NOTE | 2024-01-10 07:00 | NUR ---
BEDSIDE REPORT RECEIVED FROM ELLIOTT SHAFFER. PT RESTING IN BED. PT IS ALERT AND ORIENTD, DENIES NEEDS AT THIS TIME, CALL LIGHT IN REACH.
[2024-01-10] MEDS ORDERED: Lisinopril 20 MG TAB PO SCH (09:00)
--- NOTE | 2024-01-10 11:18 | NUR ---
DRESSING CHANGE TO ABD FOLD SKIN ULCER DONE BY WOUND CARE NURSE PRACTIONER. PER HER REPORT WOUND HAS IMPROVED SINCE ADMISSION. INTERDRY PLACED TO ABD FOLDS, MICONAZOLE POWDER APPLIED TO ABD AND BREAST SKIN FOLDS.
--- NOTE | 2024-01-10 16:07 | NUR ---
hop worker received additonal declines by: [facility] , [facility], [place], [place], [facility], [facility], [facility], [facility], [facility] (full), [place] (level 2,) [facility], [place] (full,) [facility] [place], [facility], [facility] [place], and [place]. CAROLYN left a voicemail to [facility] and could not get ahold of the [facility]. CAROLYN left message to [facility] [place], [facility], [facility], and could not find an active number for [facility]. CAROLYN spoke with [facility] and [facility] who are reviewing. CAROLYN emailed the referral to Christopher ARANGO who is checking medication costs and will likely visit/call pt tomorrow. CAROLYN faxed referral to [facility], [facility], [facility], and [facility]. Discharge Plan: SNF
--- NOTE | 2024-01-10 16:39 | NUR ---
Patient awake, alert and oriented. Patient c/o pain and anxiety, PRNs given as ordered. Family at the bedside. Patient denies further needs at this time. Bed in lowest position with call light within reach.
--- NOTE | 2024-01-10 17:31 | NUR ---
adz worker was notified [facility] could clinically accept but had questions regarding financial as patient does not have a secondary insurance and would need to pay a copay of $204 per day on day 21. CAROLYN and CAROLYN Mckenzie met with patient and her mother to discuss this. CAROLYN explained [facility] clinically accepted but if patient was still needing rehab on day 21 she would need to pay $204 per day. SW discussed her 401k that disqualifies her for Medicaid. Patient stated she could not use that as that is all of her savings. CAROLYN Mckenzie explained this was the only facility that patient has been accepted at. Patient's mother asked about IPR. SW explained all facilities that have declined patient and the reasoning for denial of IPR is the patient's current inability to tolerate 3 hours of therapy per day which is an insurance requirement for all IPRs. Patient discussed returning home with home health. CAROLYN explained the hospital team's recommendation is to go to a nursing facility prior to home. Patient stated she does not want to go as far as [place] (approximately 40 miles) due to her daughter not being able to visit daily. Patient's daughter came into the room. CAROLYN and CAROLYN Mckenzie reviewed the information again. Patient's daughter stated she wanted her home but didn't know if she could with the carpet being ripped out, she stated she could cover it up where the carpet is ripped up. CAROLYN Mckenzie explained if they were wanting to go home then they would have home health meet with them to determine if they would accept. CAROLYN explained home health told the social media director in the beginning of the hospital stay that patient was unsafe to return home. Patient stated she did not know if she felt safe to return home but did not want to go to a nursing facility either. Patient's mother stated she would recommend the daily therapy at a nursing facility. CAROLYN explained patient could leave the correction at any time if she did not want to stay but it would be beneficial to get the additional rehab before going home because home health will not be able to come in daily to do that therapy they would only be there 2 maybe 3 days a week for about an hour a day. Patient's daughter stated she could care for her at home, she was doing it before she could do it when she returns home. CAROLYN mentioned the follow up appointments at [facility] and [facility]. CAROLYN explained she would need to be able to get to and from those appointments. Patient's daughter asked if cj would take her to those appointments. CAROLYN explained cj would take her if she was in their facility. CAROLYN explained she would set up for home health to come meet with her and the family tomorrow morning if they will think about it. Family and patient stated they would think about it. CAROLYN spoke with [facility] rep, Yoan, whom expressed they could accept patient back. CAROLYN explained the hospital's recommendation is still SNF but patient is adamant about going home. Yoan stated he would be up to the hospital tomorrow morning at 9:30 am to speak with patient and her family. CAROLYN left a message with [facility] and explained if patient chooses to go to SNF then she would go to them tomorrow if they have a bed. CAROLYN explained she would follow up tomorrow after the meeting with the family. CAROLYN updated patient's nurse and Dr. Flynn. Discharge plan: SNF is recommended, patient considering home with home health
--- NOTE | 2024-01-10 21:50 | NUR ---
Patient resting in bed, assessed at this time, A/Ox4, reports pain to right leg and ankle, medicated with oxycodone, still with IV infusing well on left arm, dressing to right leg, clean, dry and intact, still with quesada to dependent drainage, denies further needs, call light and personal items within reach, will continue to monitor.
[2024-01-11 01:11] VITALS: BP_SYST 153
[2024-01-11 03:44] VITALS: BP 137/73; PULSE 89; TEMP 99.2
[2024-01-11 05:04] VITALS: BP_SYST 137
[2024-01-11 06:32] LABS: BASO # 0.1 K/mm3 (0.0-0.2); BASO % 0.5 % (0.0-2.0); EOS # 0.6 K/mm3 (0.0-0.7); EOS % 5.3 % (0.0-4.0); GRAN # 5.9 K/mm3 (1.4-6.5); GRAN % 52.5 % (42.2-75.2); HEMATOCRIT 39.3 % (37.0-47.0); HEMOGLOBIN 12.6 g/dl (12.5-16.0); LYMPH # 3.6 K/mm3 (1.2-3.4); LYMPH % 31.9 % (20.0-51.0); MEAN CELL VOLUME 88 fl (80.0-100.0); MEAN CORPUSCULAR HEMOGLOBIN 28 pg (27-31); MEAN CORPUSCULAR HGB CONC 32 g/dl (33.0-37.0); MEAN PLATELET VOLUME 10.8 fl (7.4-10.4); MONO # 1.1 K/mm3 (0.1-0.6); MONO % 9.3 % (1.7-9.3); PLATELET COUNT 289 K/mm3 (130-400); RED BLOOD COUNT 4.48 M/mm3 (4.10-5.30); REDCELL DISTRIBUTION WIDTH-CV 16.3 % (11.5-14.5)
[2024-01-11 06:44] LABS: CALCIUM 8.5 mg/dL (8.4-10.2); CREATININE, serum 0.8 mg/dL (0.57-1.11); POTASSIUM 4.4 mEq/L (3.5-4.5)
[2024-01-11 08:00] VITALS: BP 153/84; PULSE 82; TEMP 98
--- NOTE | 2024-01-11 08:23 | NUR ---
SW received messages back that [facility] are declining due to pt's weight over their threshold.
[2024-01-11 09:00] VITALS: BP_SYST 153
[2024-01-11] MEDS ORDERED: COREG12.5 MG PO (10:31)
[2024-01-11] MEDS ORDERED: PRINIVIL20 MG PO (10:31)
[2024-01-11] MEDS ORDERED: ASPIRIN 32325 MG/TAB PO (10:31)
[2024-01-11] MEDS ORDERED: MIRTAZAPINE7.5 MG PO (10:32)
[2024-01-11] MEDS ORDERED: STOOL SOFTENER100 M2 PO (10:33)
[2024-01-11] MEDS ORDERED: MIRALAX510G PO (10:33)
[2024-01-11] MEDS ORDERED: DESENEX TP (10:34)
[2024-01-11] MEDS ORDERED: NOVLOG SQ (10:35)
[2024-01-11] MEDS ORDERED: ROXICODONE 55 MG/TAB PO ×2 (10:38→10:47)
[2024-01-11] MEDS ORDERED: KLONOPIN 1MG1 MG PO ×2 (10:39→10:47)
--- NOTE | 2024-01-11 13:18 | NUR ---
area field worker met with patient, Yoan ([facility]), OT and patient's daughter to discuss discharge plan. Patient decided she would go to [facility] at least for a few weeks to get rehab and that way her daughter could assist with getting the equipment ready at home. OT is recommending a hospital bed, bariatric walker, bariatric wheelchair, bariatric commode and a trapeze for her bed. SW explained she could look into getting some of those items for her to rent or borrow and would follow up. SW contacted [facility] and provided the update from above and explained she would like to return home after hopefully a short rehab stay but she is aware of the private pay cost that would begin on day 21. Joseline from [facility] stated they could pickling operator patient at 1 pm today. SW notified patient's nurse, decision unit rn, Dr. Flynn, patient and her daughter of transport time. SW faxed clinical updates and discharge orders to [facility]. CAROLYN contacted [facility] whom has a bariatric wheelchair available, they do not have a FWW or commode for patient's weight limit. CAROLYN contacted [facility] whom reports to not have a bariatric walker or commode either. SW contacted [facility] whom has a hospital bed available that is 173.80 per month. SW provided this information to patient and explained she would need a script from the facility when she is ready for discharge for the walker, bed and trapeze. SW explained she would need to order the commode unless they are able to find another one at different agency when patient is ready for discharge from rehab. SW reviewed the important message from Medicare with patient. Patient understood and signed the form. SW made a copy, placed original in chart and provided copy to patient. SW updated Yoan from [facility] on the above information. SW faxed demographic information for patient to [facility] to ensure that bed would be a good fit for patient. Discharge plan: [facility]
--- NOTE | 2024-01-11 13:52 | NUR ---
PATIENT BELONGINGS GATHERED, IV DC'D. PACKET GIVEN TO TRANSPORTER. REPORT CALLED TO THE [facility] IN [place].
== END 2024-01-11 13:53 | DRG 313 ==
LOC: COL.ER 09:52 → SURG 11:48
PROVIDERS: Family Medicine; Orthopaedic Surgery Sports Medicine; Physician Assistant; ADMIT Hospitalist
PROC: 0QSG04Z Reposition Right Tibia with Internal Fixation Device, Open Approach (ICD-10-PCS; 2024-01-03)
PROC: 0QSJ04Z Reposition Right Fibula with Internal Fixation Device, Open Approach (ICD-10-PCS; principal; 2024-01-03 17:00)
DX: S82.231A Displaced oblique fracture of shaft of right tibia, initial encounter for closed fracture (principal); S82.401A Unspecified fracture of shaft of right fibula, initial encounter for closed fracture; J96.01 Acute respiratory failure with hypoxia; Z68.44 Body mass index [BMI] 60.0-69.9, adult; K75.81 Nonalcoholic steatohepatitis (NASH); E11.43 Type 2 diabetes mellitus with diabetic autonomic (poly)neuropathy; E11.40 Type 2 diabetes mellitus with diabetic neuropathy, unspecified; K31.84 Gastroparesis; S90.415A Abrasion, left lesser toe(s), initial encounter; M79.7 Fibromyalgia; I10 Essential (primary) hypertension; E07.9 Disorder of thyroid, unspecified; I16.0 Hypertensive urgency; E83.52 Hypercalcemia; G25.81 Restless legs syndrome; G43.909 Migraine, unspecified, not intractable, without status migrainosus; F33.9 Major depressive disorder, recurrent, unspecified; B37.9 Candidiasis, unspecified; R33.9 Retention of urine, unspecified; K59.00 Constipation, unspecified; G89.29 Other chronic pain; F41.9 Anxiety disorder, unspecified; G47.00 Insomnia, unspecified; E66.01 Morbid (severe) obesity due to excess calories; W18.30XA Fall on same level, unspecified, initial encounter; Z79.890 Hormone replacement therapy; Z79.891 Long term (current) use of opiate analgesic; Z79.4 Long term (current) use of insulin; Z88.8 Allergy status to other drugs, medicaments and biological substances
CPT/HCPCS: A9270; A9284; C1713; J0360; J0688; J0690; J1100; J1170; J1815; J1885; J2250; J2270; J2405; J2704; J3010; J7120; Q3014

== ENCOUNTER 2024-02-21 13:16 | Observation (INO) | payer MEDICARE ==
[~2024-02-21] VITALS: Ht 175.3 cm; Wt 187.3 kg
[~2024-02-21 13:16] MED LIST changes: +ASPIRIN 32325 MG/TAB PO; +BELSOMRA10 MG PO; +CELEBREX 200MG200 MG PO; +COREG12.5 MG PO; +DESENEX TP; +LYRICA 150MG C150 MG PO; +MIRALAX510G PO; +MIRTAZAPINE7.5 MG PO; +NOVLOG SQ; +PRINIVIL20 MG PO; +ROXICODONE 55 MG/TAB PO; +STOOL SOFTENER100 M2 PO
[2024-02-21] MEDS ORDERED: HYDROmorphone 0.5 MG/0.5 ML SYRINGE IV ONE ×2 (15:00→17:15)
[2024-02-21 15:05] LABS: BASO # 0.1 K/mm3 (0.0-0.2); BASO % 0.6 % (0.0-2.0); EOS # 0.5 K/mm3 (0.0-0.7); EOS % 4.5 % (0.0-4.0); GRAN # 8.1 K/mm3 (1.4-6.5); GRAN % 69.6 % (42.2-75.2); HEMATOCRIT 41.9 % (37.0-47.0); HEMOGLOBIN 13.4 g/dl (12.5-16.0); LYMPH # 2.1 K/mm3 (1.2-3.4); LYMPH % 18.1 % (20.0-51.0); MEAN CELL VOLUME 90 fl (80.0-100.0); MEAN CORPUSCULAR HEMOGLOBIN 29 pg (27-31); MEAN CORPUSCULAR HGB CONC 32 g/dl (33.0-37.0); MEAN PLATELET VOLUME 10.5 fl (7.4-10.4); MONO # 0.8 K/mm3 (0.1-0.6); MONO % 6.6 % (1.7-9.3); PLATELET COUNT 273 K/mm3 (130-400); RED BLOOD COUNT 4.64 M/mm3 (4.10-5.30); REDCELL DISTRIBUTION WIDTH-CV 14.9 % (11.5-14.5)
[2024-02-21 15:18] LABS: ERYTHROCYTE SEDIMENTATION RATE 76 mm/hr (0-30)
[2024-02-21 15:24] LABS: ALBUMIN 2.7 g/dL (3.5-5.0); BILIRUBIN,TOTAL 0.4 mg/dL (0.2-1.2); C-REACTIVE PROTEIN 5.33 mg/dL (0.00-0.50); CALCIUM 9.4 mg/dL (8.4-10.2); CREATININE, serum 0.98 mg/dL (0.57-1.11); POTASSIUM 4.5 mEq/L (3.5-4.5); TOTAL PROTEIN 6.4 g/dl (6.2-8.1)
[2024-02-21] MEDS ORDERED: Docusate Sodium 100 MG CAP PO PRN (16:00)
[2024-02-21] MEDS ORDERED: Acetaminophen 325 MG TAB PO PRN (16:00)
[2024-02-21] MEDS ORDERED: Polyethylene Glycol 3350 17 GM PDS PO PRN (16:00)
[2024-02-21] MEDS ORDERED: ASPIRIN 32325 MG/TAB PO (16:06)
[2024-02-21] MEDS ORDERED: COREG12.5 MG PO (16:07)
[2024-02-21] MEDS ORDERED: CIPRO 500MG TA500 MG PO (16:09)
[2024-02-21] MEDS ORDERED: KLONOPIN 0.5MG0.5 MG PO (16:10)
[2024-02-21] MEDS ORDERED: ZETIA 10MG TAB10 MG PO (16:14)
[2024-02-21] MEDS ORDERED: PEPCID40 MG PO (16:15)
[2024-02-21] MEDS ORDERED: DILAUDID 4MG TAB4 MG PO (16:17)
[2024-02-21] MEDS ORDERED: NATURAL IRON65 MG PO (16:18)
[2024-02-21] MEDS ORDERED: MAG-OX 400400 MG/TAB PO (16:18)
[2024-02-21] MEDS ORDERED: MIRALAX PA17 GM/Dose PO (16:19)
[2024-02-21] MEDS ORDERED: ZOFRAN8 MG PO (16:20)
[2024-02-21] MEDS ORDERED: MIRTAZAPINE7.5 MG PO (16:20)
[2024-02-21] MEDS ORDERED: hydrOXYzine HCl 25 MG TAB PO PRN (16:45)
[2024-02-21] MEDS ORDERED: Insulin Lispro (HumaLOG) SQ SCH (17:00)
--- NOTE | 2024-02-21 17:03 | NUR ---
telephone lineworker was consulted in the ER due to patient needing placement due to daughter not being able to care for her by herself in the home. CAROLYN reviewed chart and notes patient was placed at [facility] for rehab in December. Patient informed nursing that she was there for a week and it was "a week from hell." ER charge nurse reported it would not be safe for her to return home as she is non weight bearing now. SW left a voicemail for the [facility] to discuss when patient left and the status she left on. CAROLYN contacted [facility] whom was going to accept patient after she discharged from the nursing facility. Yoan from [facility] stated he would look to see if patient was still one of their patients to give an update on work they have done with patient at home. CAROLYN, CAROLYN student and SW director, Lesly Mckenzie, met with patient and her daughter to discuss options. Patient's daughter reported not being able to care for her and patient is unable to care for herself at this time. Patient and patient's daughter understand she would need to private pay immediately on admission to a nursing facility as she likely would be in "observation status" at the hospital. CAROLYN explained what inpatient and observation status meant. CAROLYN Mckenzie explained patient would need to spend down her group home account as it is considered an "asset", so she would not qualify for Medicaid until that was spent down. Patient's daughter is going to assist patient with obtaining a copy of the statement for her group home plan to send to the nursing facilities. Patient would like to remain as local to [place] as possible and does not want to return to [facility]. Patient became emotional during the discussion. Patient understands she will need to private pay upon admission to nursing facility. CAROLYN secure emailed referral to [facility]. SW received notice that [facility] is unable to accept. CAROLYN faxed referral to [facility], [facility], [facility] [place], [facility] [place], [facility], [facility], [facility], [facility], [facility]. CAROLYN received a voicemail from patient's daughter that they were working on locating the statement for the group home account but that it had been transferred to different companies over the years. Patient's daughter reported their financial person was supposed to contact her back. Patient's tammydaphniejanellejean's P# [phone].
[2024-02-21 17:47] LABS: COLLECTION METHOD CLEAN CATCH
[2024-02-21 17:54] LABS: URINE APPEARANCE TURBID (CLEAR/HAZY); URINE BLOOD 3+ (NEGATIVE); URINE COLOR Dark Yellow (YELLOW); URINE GLUCOSE NEGATIVE (NEGATIVE); URINE KETONE TRACE (NEGATIVE); URINE NITRATE POSITIVE (NEGATIVE); URINE PROTEIN(semi-quant) 2+ (NEGATIVE)
[2024-02-21] MEDS ORDERED: Glucagon 1 MG VIAL IM PRN (18:00)
[2024-02-21] MEDS ORDERED: Dextrose 50% Water 25 GM/50 ML SYRINGE IV PRN (18:00)
[2024-02-21] MEDS ORDERED: Dextrose (Glucose) 15 GM (4 x 3.75 GM) Chewable TABLET PACK PO PRN (18:00)
[2024-02-21 18:18] LABS: MUCOUS PRESENT (NOT PRESENT); URINE BACTERIA MANY /hpf (NONE SEEN); URINE RBC 20-50 /hpf (0-2); URINE WBC >50 /hpf (0-2)
[2024-02-21 18:19] LABS: BUDDING YEAST PRESENT (NOT PRESENT)
--- NOTE | 2024-02-21 19:08 | NUR ---
[facility] PATIENT PRESENTED WITH SEVERAL SKIN ISSUES, CHARGE NURSE PERFORMED A SKIN ASSESSMENT ALONG WITH SEVERAL OTHER PERSONNEL. DRESSINGS APPLIED TO BILATERAL INNER THIGHS FOR SEVERE EXCORIATION THAT WERE OPEN, RED, AND WEEPING. PANIS YEASTY AND RED WITH SCATTERED OPEN AREAS, INTERDRY APPLIED. BILATERAL BREASTS YEASTY WITH ONE OPEN AREA UNDER RIGHT BREAST. RECTUM EXCORIATED, OPEN, RED, AND WEEPY, DRESSING APPLIED. LEFT POSTERIOR HIP WITH HEALING EXCORIATION. PATIENT REPORTS PAIN, REQUESTS PRN PAIN MEDS. PATIENT REMINDED THAT PAIN MEDS ARE SCHEDULED AND WILL BE ADMINISTERED BY NIGHT NURSE. SKIN CHECK SHEET FILLED OUT AND PLACED ON CHART.
[2024-02-21 19:43] VITALS: BP 175/82; PULSE 75; TEMP 98.5
[2024-02-21 21:00] VITALS: BP_SYST 175
[2024-02-21] MEDS ORDERED: Pregabalin 150 MG CAP PO SCH (21:00)
[2024-02-21] MEDS ORDERED: Metoclopramide 10 MG TAB PO SCH (21:00)
[2024-02-21] MEDS ORDERED: cloNIDine 0.1 MG TAB PO SCH (21:00)
[2024-02-21] MEDS ORDERED: Aspirin 325 MG TAB PO SCH (21:00)
[2024-02-21] MEDS ORDERED: rOPINIRole 1 MG TAB PO SCH (21:00)
[2024-02-21] MEDS ORDERED: Celecoxib 200 MG CAP PO SCH (21:00)
[2024-02-21] MEDS ORDERED: clonazePAM 1 MG TAB PO SCH (21:00)
[2024-02-21] MEDS ORDERED: Magnesium Oxide 400 MG TAB PO SCH (21:00)
[2024-02-21] MEDS ORDERED: Patient's Own Medication Item PO SCH (21:00)
[2024-02-21] MEDS ORDERED: clonazePAM 0.5 MG TAB PO SCH (21:00)
[2024-02-21] MEDS ORDERED: HYDROmorphone 4 MG TAB PO SCH (21:00)
[2024-02-21] MEDS ORDERED: BELSOMRA 10 MG PO SCH (21:00)
[2024-02-21] MEDS ORDERED: Famotidine 20 MG TAB PO SCH ×2 (21:00)
--- NOTE | 2024-02-21 21:15 | NUR ---
pt is a&ox4 resting in bed. meds given and assessment complete. pt rates pain in her right leg a 6/10, scheduled dilauded given. splint intact. quesada to dd w dark yellow urine output. INT to left ac patent. pt has a lot of excoriation around groin, buttock, and pannus area, mepilex dressings are cdi. interdry is placed under abdominal fold. pt denies needs at this time. call light in reach.
[2024-02-21 23:42] VITALS: BP 157/71; PULSE 71; TEMP 97.6
[2024-02-22] VITALS (13 sets, daily range): BP systolic 133–180; BP diastolic 75–83; PULSE 62–81; TEMP 97.1–98.6
[2024-02-22] MEDS ORDERED: Carvedilol 6.25 MG TAB PO SCH (08:00)
[2024-02-22] MEDS ORDERED: Insulin Regular Human (NovoLIN R/HumuLIN R) SQ SCH (08:00)
[2024-02-22] MEDS ORDERED: Fluconazole 100 MG TAB PO SCH (09:00)
[2024-02-22] MEDS ORDERED: Ferrous Sulfate 325 MG TAB PO SCH (09:00)
[2024-02-22] MEDS ORDERED: cefTRIAXone 2 G in Water For Injection,Sterile 20 ML IV SCH (10:00)
[2024-02-22] MEDS ORDERED: Metoclopramide 10 MG TAB PO SCH (11:30)
--- NOTE | 2024-02-22 12:04 | NUR ---
Verbal report given to primary nurse Alex. Questions entertained and answered. Care assumed by primary nurse.
--- NOTE | 2024-02-22 12:47 | NUR ---
Initial visit; Patient thanked [employer] for looking in on her and offering God's blessings and to be kept on [employer] prayer list.
--- NOTE | 2024-02-22 14:21 | NUR ---
CAROLYN called patient's daughter Kisha to inquire about financials. She stated that she is waiting on email from patient's [employer] agency and will forward to SW when received. She is also going to look through patient's papers at home to get her bank account information and will send that. CAROLYN informed her that it is time sensitive for referrals for LTC. Daughter voiced understanding. CAROLYN team faxed referrals for LTC to [facility], [facility], and [facility]. Follow up calls on referrals sent yesterday with following results: under review: [facility], [facility], [facility], and [facility] awaiting financials. declined: [facility], [facility], [facility]. No answer: [facility], [facility]. Discharge plan: LTC
--- NOTE | 2024-02-22 16:12 | NUR ---
On 02/21/24, child welfare social worker met with patient and her daughter about a safe discharge plan. Daughter, Kisha, states that she cannot safely take care of patient in their home. Patient was previously transferred to [facility] from acute care. Patient stated she left after one week and will not return there. Patient became emotional when discussing the need to spend down her savings and then possibly sale her home, however, acknowledged that she needs to enter shelter care and hopes to stay in [place] near her daughter. Patient and daughter agree to providing the hospital with bank statements and assisted account information to be shared with nursing facilities when referrals are given.
--- NOTE | 2024-02-22 19:42 | NUR ---
Informed by this tech that patient reported she's not feeling good, blood sugar taken and it was 41mg/dl, dextrose chewable tab given as per protocol, able to eat 100% if her supper tray a little bit ago, taken her other pills at this time, supportive daughter at bedside.
--- NOTE | 2024-02-22 20:14 | NUR ---
Patient drowsy at this time but arousable, cold and clammy, assessed at this time, see shift assessment, blood sugar at 2004 was 64 and she's still working with her last dextrose chewable, will recheck at 2019, IV infusing well on left AC, splint to RLE clean, dry and intact, will closely monitor.
--- NOTE | 2024-02-22 20:20 | NUR ---
Blood is at 80mg/dl, CRISTA, called Balwinder, the PA at 2035 and made him aware about patient's present condition, received an order to recheck the blood sugar in an hour, no new orders received.
--- NOTE | 2024-02-22 22:10 | NUR ---
Caridad Britt, the PA at this time, blood sugar is at 98mg/dl, made him aware that patient is still drowsy but arousable, no new orders received at this time, will monitor.
--- NOTE | 2024-02-22 23:42 | NUR ---
Repositioned patient to the left side, able to answer this nurse question at this time, still drowsy, VSS, dressing to inner thigh and sacral area with mepilex clean, dry and intact, catheter care provided, will continue to monitor.
[2024-02-23] VITALS (8 sets, daily range): BP systolic 130–162; BP diastolic 60–77; PULSE 62–73; TEMP 97.7–98
[2024-02-23] MEDS ORDERED: Miconazole 2% Topical Powder BOTTLE TP PRN (02:00)
[2024-02-23] MEDS ORDERED: Lisinopril 10 MG TAB PO SCH (09:00)
--- NOTE | 2024-02-23 09:43 | NUR ---
SW attended clinical rounds. Patient alert and involved in conversation. SW updated patient on multiple referrals sent yesterday and contact with daughter related to financial documents still pending for referrals. Patient voiced wanting to stay as close to [place] as possible for placement. SW will make follow up calls to pending referrals. Discharge plan: LTC
--- NOTE | 2024-02-23 10:36 | NUR ---
Pt doing okay today, PRN pain medication given per request. Pt reports that it does help. Pt did have bowel movement this am, bed bath done and linens changed. Mepilex dressings changed to inner thighs and coccyx. Pt does have interdry in pannus folds. Pt legs are elevated on pillows and continue to reposition pt every couple of hours and as needed.
[2024-02-23] MEDS ORDERED: CEFTIN500 MG PO (11:52)
[2024-02-23] MEDS ORDERED: PRINIVIL10 MG PO (11:53)
[2024-02-23] MEDS ORDERED: Insulin Regular Human (NovoLIN R/HumuLIN R) SQ SCH (12:00)
--- NOTE | 2024-02-23 12:02 | NUR ---
CAROLYN received call from Vida at [facility] accepting patient for admission today. CAROLYN notified attending Dr. Flynn who is agreeable for discharge. SW called patient's daughter Kisha to inform of acceptance and plan for discharge today. She stated that she is coming to hospital to talk with patient shortly. CAROLYN and Director Lesly Mckenzie met with patient at bedside to inform of acceptance. Patient tearful and voiced disappointment that she cannot stay close to her daughter, voiced worry for "how's my daughter going to pay her bills" and voiced worry that she's "going to be stuck in a fci". CAROLYN explained the process of many referrals being send and one acceptance at [facility] due to multiple barriers from other facilities: weight, non wt bearing, bedrest, and total care. Patient continued to be tearful. Director agreeable for hospital to pay for ambulance transport. CAROLYN met with attending to discuss ambulance transfer. All paperwork completed, discharge orders and clinical updates to be faxed to [facility].
--- NOTE | 2024-02-23 12:03 | NUR ---
Patient is tearful d/t learning about location of LTC facility. This nurse helped her set manageable and attainable goals. This nurse provided emotional support. Then reported off to primary nurse. No further complaints or needs from the patient.
--- NOTE | 2024-02-23 12:54 | NUR ---
Pt upset about having to leave and going to [place]. She stated the last place she was at the beds were uncomfortable and they took too long to get to her when she needed help. She then stated that she will hardly be able to get to see her daughter. She said she is used to seeing her everyday. Explained that there is no need for her to stay in the hospital which she understood.
--- NOTE | 2024-02-23 13:44 | NUR ---
Pts daughter is here visiting with her. Pt is dressed and ready for transfer. Scheduled medications given
--- NOTE | 2024-02-23 15:00 | NUR ---
EMS arrived around 1430 to take pt to [facility]. Report just called to Shonna at [facility]. All questions answered
== END 2024-02-23 14:30 ==
LOC: COL.ER 13:16 → SURG 15:56
PROVIDERS: Emergency Medicine; Physician Assistant; ADMIT Internal Medicine
DX: T84.116A Breakdown (mechanical) of internal fixation device of bone of right lower leg, initial encounter (principal); T84.84XA Pain due to internal orthopedic prosthetic devices, implants and grafts, initial encounter; M96.671 Fracture of tibia or fibula following insertion of orthopedic implant, joint prosthesis, or bone plate, right leg; S92.901A Unspecified fracture of right foot, initial encounter for closed fracture; E11.9 Type 2 diabetes mellitus without complications; K31.84 Gastroparesis; S31.809A Unspecified open wound of unspecified buttock, initial encounter; G25.81 Restless legs syndrome; M79.7 Fibromyalgia; G89.29 Other chronic pain; N30.10 Interstitial cystitis (chronic) without hematuria; L30.4 Erythema intertrigo; G43.909 Migraine, unspecified, not intractable, without status migrainosus; E07.9 Disorder of thyroid, unspecified; E83.52 Hypercalcemia; I10 Essential (primary) hypertension; L98.499 Non-pressure chronic ulcer of skin of other sites with unspecified severity; F41.9 Anxiety disorder, unspecified; F32.A Depression, unspecified; D72.829 Elevated white blood cell count, unspecified; R79.89 Other specified abnormal findings of blood chemistry; E66.01 Morbid (severe) obesity due to excess calories; Z79.4 Long term (current) use of insulin; Z79.84 Long term (current) use of oral hypoglycemic drugs; Z79.890 Hormone replacement therapy; Z79.899 Other long term (current) drug therapy; Z79.82 Long term (current) use of aspirin; X58.XXXA Exposure to other specified factors, initial encounter; Y93.9 Activity, unspecified; Y92.9 Unspecified place or not applicable; Z68.44 Body mass index [BMI] 60.0-69.9, adult
CPT/HCPCS: A9270; G0378; J0696; J1171; J1650; J1815